=== PATIENT | female | born 1980 ===

== ENCOUNTER 2020-08-16 23:18 | Emergency (ER) | payer MEDICAID ==
[2020-08-16] MEDS ORDERED: Take Home: Cephalexin 500 MG Cap, 4 Cap Pack PO ONE (23:47)
--- NOTE | 2020-08-16 23:53 | EDM.PDOC ---
ED HPI GENERAL MEDICAL PROBLEM - General Chief Complaint: Skin Complaint Stated Complaint: painful legs Time Seen by Provider: 08/16/20 23:35 Source of Information: Reports: Patient History Limitations: Reports: No Limitations - History of Present Illness INITIAL COMMENTS - FREE TEXT/NARRATIVE: Laxmi is a 40 year old female who presents to ER with concerns of infection in her left knee. Fell yesterday going up her stairs and sustained abrasions to her knees. Today, notes redness and warmth and more pain. Feels knee is swollen and it "pop when I bend it". No drainage to wounds, does "have a black area she is concerned about". No fevers. Onset: Gradual Duration: Day(s):, Getting Worse Location: Reports: Lower Extremity, Left Quality: Reports: Ache Severity: Moderate Associated Symptoms: Denies: Fever/Chills, Nausea/Vomiting Treatments EMERGENCY PLANNER: Reports: Cold Therapy Left Knee Pain Score (Numeric/FACES): 8 - Related Data Allergies Allergy/AdvReac Type Severity Reaction Status Date / Time Latex, Natural Rubber Allergy Rash Verified 08/16/20 23:19 Home Meds: Home Meds busPIRone [Buspar] 15 mg PO DAILY 08/16/20 [History] traZODone 200 mg PO BEDTIME 08/16/20 [History] Past Medical History Musculoskeletal History: Reports: Other (See Below) Other Musculoskeletal History: djd Psychiatric History: Reports: Anxiety, Depression - Past Surgical History Musculoskeletal Surgical History: Reports: Other (See Below) Other Musculoskeletal Surgeries/Procedures:: full metal cage inside wi- back surgery in [facility] Social & Family History - Family History Family Medical History: No Pertinent Family History - Tobacco Use Tobacco Use Status *Q: Current Every Day Tobacco User Years of Tobacco use: 5 Packs/Tins Daily: 0.5 - Recreational Drug Use Recreational Drug Use: No ED ROS GENERAL - Review of Systems Review Of Systems: See Below Constitutional: Reports: Weakness. Denies: Fever, Chills, Malaise HEENT: Reports: No Symptoms Respiratory: Reports: No Symptoms Cardiovascular: Reports: No Symptoms Endocrine: Reports: No Symptoms GI/Abdominal: Reports: No Symptoms Skin: Reports: Erythema, Wound ED EXAM, SKIN/RASH Exam: See Below Exam Limited By: No Limitations General Appearance: Alert, WD/WN, No Apparent Distress Extremities: Joint Swelling (mild joint swelling noted to left knee), Increased Warmth, Redness (has quarter sized irregular abrasion to left knee with surr ounding erythema and warmth, superficial in nature. No drainage. No necrotic tissue. Right knee has superficial abrasion, nontender), Other (has crepitus with flexion/extension of left knee. No laxity noted. ) Neurological: Alert, Oriented Course - Vital Signs Last Recorded V/S: Last Vital Signs Temp 97.3 F 08/16/20 23:21 Pulse 92 08/16/20 23:21 Resp 18 08/16/20 23:21 BP 98/73 08/16/20 23:21 Pulse Ox 97 08/16/20 23:21 - Orders/Labs/Meds Meds: Medications Discontinued Medications Generic Name Dose Route Start Last Admin Trade Name Dino PRN Reason Stop Dose Admin Cephalexin 1 packet 08/16/20 23:47 Take Home: Cephalexin 500 Mg Cap, 4 Cap Pack PO 08/16/20 23:48 ONETIME ONE Departure - Departure Time of Disposition: 23:51 Disposition: Home, Self-Care 01 Condition: Good Clinical Impression: Wound infection - Discharge Information *PRESCRIPTION DRUG MONITORING PROGRAM REVIEWED*: No *COPY OF PRESCRIPTION DRUG MONITORING REPORT IN PATIENT VIRGILIO: No Instructions: Wound Infection, [id number] Forms: ED Department Discharge Additional Instructions: 1. Keep wound clean and dry 2. Clean wound with soap and water 3. Triple antibiotic ointment to affected areas 4. If redness, warmth, swelling and drainage increases, will need to follow up with your provider 5. If pain, instability, buckling or locking or knee persists in the next 5-7 days, may need to follow up with your provider Sepsis Event Note (ED) - Evaluation Sepsis Screening Result: No Definite Risk - Focused Exam Vital Signs: Vital Signs Temp Pulse Resp BP Pulse Ox 08/16/20 23:21 97.3 F 92 18 98/73 97
[2020-08-16] MEDS ORDERED: Bacitracin/Neomycin/Polymyxin B Oint 0.9 GM U/D Packet TOP ONE (23:59)
== END 2020-08-17 00:05 | disposition home or self-care (01) ==
LOC: CC.ED 23:18
DX: S80.212A Abrasion, left knee, initial encounter (principal); L08.9 Local infection of the skin and subcutaneous tissue, unspecified; Z91.040 Latex allergy status; Z72.0 Tobacco use; Z79.899 Other long term (current) drug therapy; W10.9XXA Fall (on) (from) unspecified stairs and steps, initial encounter
CPT/HCPCS: 99283; A9270-GY